=== PATIENT | male | born 1955 | race Two or more races ===

== ENCOUNTER 2019-10-07 08:04 | Day surgery (SDC) | payer BC ==
[2019-10-07] VITALS (8 sets, daily range): BP systolic 111–124; BP diastolic 72–84
[~2019-10-07] VITALS: Ht 172.7 cm; Wt 78.0 kg
[~2019-10-07 08:04] MED LIST: LR 1000ml 1,000 ML IVLG SCH
[2019-10-07] MEDS ORDERED: CRESTOR20 MG ORAL (08:54)
[2019-10-07] MEDS ORDERED: DIOVAN320 MG ORAL (08:54)
[2019-10-07] MEDS ORDERED: ASPIRIN81 MG ORAL (08:54)
--- NOTE | 2019-10-07 09:47 | Pre-Procedure Note/Attestation ---
Pre-Procedure Note/Attestation Complete Prior to Procedure Planned Procedure: not applicable Procedure Narrative: colonoscopy Indications for Procedure Pre-Operative Diagnosis: screening Attestation I attest that I discussed the nature of the procedure; its benefits; risks and complications; and alternatives (and the risks and benefits of such alternatives ), prior to the procedure, with the patient (or the patient's legal bilingual call center representative). I attest that, if there was a reasonable possibility of needing a blood transfusion, the patient (or the patient's legal bilingual call center representative) was given the [facility] standardized written summary, pursuant to the [place] Blood Safety Act ([place] Health and Safety Code # 1645, as amended). I attest that I re-evaluated the patient just prior to the surgery and that there has been no change in the patient's H&P, except as documented below: Marvin Barreto MD Oct 07, 2019 09:47
--- NOTE | 2019-10-07 09:48 | Short Stay Surgery H&P ---
History of Present Illness History of Present Illness Chief Complaint screening HPI Lavon Fletcher is a 64 year old male who was admitted on for Screening Colonoscopy Patient History Allergies: Coded Allergies: No Known Allergies (Unverified , 10/02/19) PAST MEDICAL HISTORY: (1) Sleep apnea (2) HTN (hypertension) (3) High cholesterol Medication History Scheduled Aspirin* (Aspirin*), 81 MG ORAL DAILY, (Reported) Rosuvastatin Calcium* (Crestor*), 20 MG ORAL DAILY, (Reported) Valsartan (Diovan), 320 MG ORAL DAILY, (Reported) Review of Systems Cardiovascular: Reports: no symptoms Respiratory: Reports: no symptoms Skeletal: Reports: no symptoms Gastrointestinal: Reports: no symptoms Genitourinary: Reports: no symptoms Neurologic: Reports: no symptoms Endocrine: Reports: no symptoms Hematologic: Reports: no symptoms Physical Exam Vital Signs Last Vital Signs Date Time Temp Pulse Resp B/P (MAP) Pulse Ox O2 Delivery O2 Flow Rate FiO2 10/07/19 08:50 Room Air 10/07/19 08:42 98.2 72 18 124/73 100 Skin: normal HENT: normal Heart: normal Lungs: normal Abdomen: normal Extremities: normal Plan Plan of Care colonoscopy Attestation Are the patient's medical conditions optimized for surgery? Attestation Response: yes Marvin Barreto MD Oct 07, 2019 09:48
[2019-10-07] MEDS ORDERED: Lidocaine 1% MPF 10mg/ml 5ml ONE (10:00)
[2019-10-07] MEDS ORDERED: Propofol 200mg/20ml IV ONE (10:00)
[2019-10-07] MEDS ORDERED: LR 1000ml ONE (10:00)
[2019-10-07] MEDS ORDERED: LR 1000ml 1,000 ML IVLG SCH (10:23)
--- NOTE | 2019-10-07 10:23 | Anethesia Preoperative Eval ---
Anesthesia Pre-op PMH/ROS General Date of Evaluation: Oct 07, 2019 Time of Evaluation: 10:01 Anesthesiologist: vaishnavi ASA Score: ASA 3 Mallampati Score Class I : Soft palate, uvula, fauces, pillars visible Class II: Soft palate, uvula, fauces visible Class III: Soft palate, base of uvula visible Class IV: Only hard plate visible Mallampati Classification: Class II Surgeon: desirae Diagnosis: colon screening Surgical Procedure: colonoscopy Anesthesia History: none Family History: no anesthesia problems Allergies: Coded Allergies: No Known Allergies (Unverified , 10/02/19) Medications: see eMAR Patient NPO?: Yes Past Medical History Cardiovascular: Reports: HTN, other - hypercholesterolemia Pulmonary: Reports: DARCY Anesthesia Pre-op Phys. Exam Physician Exam Last Vital Signs Date Time Temp Pulse Resp B/P (MAP) Pulse Ox O2 Delivery O2 Flow Rate FiO2 10/07/19 08:50 Room Air 10/07/19 08:42 98.2 72 18 124/73 100 Constitutional: NAD Neurologic: CN 2-12 intact Cardiovascular: RRR Respiratory: CTA Gastrointestinal: S/NT/ND Airway Exam Mallampati Score: Class II MO: full Neck: flexible TMD: 2fb ROM: full Anesthesia Pre-op A/P Studies Pre-op Studies: EKG - nsr Risk Assessment & Plan Assessment: asa3 Plan: mac Status Change Before Surgery: No Pre-Antibiotics Drug: Yuliana Vu MD Oct 07, 2019 10:23
--- NOTE | 2019-10-07 10:29 | Endoscopy Procedure Note ---
Endoscopy Procedure Note General Indication for Procedure: screening Procedures Performed: colonoscopy Operative Findings/Diagnosis: hemorrhoids Specimen: none Pt Tolerated Procedure Well: Yes Estimated Blood Loss: none Anesthesia Anesthesiologist: felix rodriguez Anesthesia: MAC Inserted Devices Implant(s) used?: No Quality Quality of Bowel Preparation: Good Did scope reach the cecum?: Yes Was there any complications?: No GI Core Measures 50 yrs or older w/o bx or poly: No 10yrs. F/U recommended: Yes If not recommended, why?: Above average risk 18 years or older w/prev. colo: Yes <3yrs. since last colonoscopy: No Marvin Barreto MD Oct 07, 2019 10:29
[2019-10-07] MEDS ORDERED: Atropine Inj 1mg/10ml Syr IV PRN (10:30)
[2019-10-07] MEDS ORDERED: DiphenhydrAMINE 50mg/ml Inj IVP PRN (10:30)
[2019-10-07] MEDS ORDERED: Midazolam 2mg/2ml Inj IVP PRN (10:30)
[2019-10-07] MEDS ORDERED: fentaNYL 100 mcg/2 mL IV PRN (10:30)
--- NOTE | 2019-10-07 11:59 | Immediate Post-Op Evaluation ---
Immediate Post-Op Evalulation Immediate Post-Op Evalulation Procedure: colonoscopy Date of Evaluation: Oct 07, 2019 Time of Evaluation: 10:50 IV Fluids: 200ml lr Blood Products: none Estimated Blood Loss: negligible Blood Pressure Systolic: 111 Blood Pressure Diastolic: 72 Pulse Rate: 69 Respiratory Rate: 18 O2 Sat by Pulse Oximetry: 100 Temperature (Fahrenheit): 97.6 Pain Score (1-10): 0 Nausea: No Vomiting: No Complications none Patient Status: awake, reacts, patent Hydration Status: adequate Drug: Yuliana Vu MD Oct 07, 2019 11:59
--- NOTE | 2019-10-07 12:02 | 48 Hour Post Anesthesia Eval ---
Post Anesthesia Evaluation Procedure: colonoscopy Date of Evaluation: Oct 07, 2019 Time of Evaluation: 10:52 Blood Pressure Systolic: 116 0: 76 Pulse Rate: 70 Respiratory Rate: 18 Temperature (Fahrenheit): 97.6 O2 Sat by Pulse Oximetry: 100 Airway: patent Nausea: No Vomiting: No Pain Intensity: 0 Hydration Status: adequate Cardiopulmonary Status: stable Mental Status/LOC: patient returned to baseline Post-Anesthesia Complications: none Follow-up care needed: N/A Yuliana George MD Oct 07, 2019 12:02
--- NOTE | 2019-10-07 16:00 | Procedure Note ---
DATE OF PROCEDURE: 10/07/2019 SURGEON: Marvin Barreto M.D. PROCEDURE: Colonoscopy. ANESTHESIA: Per Dr. Evans. INSTRUMENT: Olympus adult flexible colonoscope. REASON FOR PROCEDURE: The procedure, risks, benefits, and possible consequences, including hemorrhage, aspiration, perforation and infection, and alternative treatments, were explained to the patient/legal guardian by Dr. Marvin Barreto and the patient/legal guardian understood and accepted these risks. INDICATIONS: 1. Screening. 2. History of colonic polyps. DESCRIPTION OF PROCEDURE: After informed consent was obtained and the patient was adequately sedated, first rectal exam was performed, which was positive for internal hemorrhoids. Then, the scope was advanced from the rectum into the cecum, and then subsequently to terminal ileum. Quality of prep was very good. The patient had a normal colonoscopy examination. No obvious polyp, mass, diverticulosis, or any pathology was seen. Retroflexion of rectum showed evidence of internal hemorrhoids. The patient tolerated the procedure without any complication. SUMMARY OF FINDINGS: Internal hemorrhoids, otherwise normal colonoscopy examination up to the cecum and terminal ileum. RECOMMENDATIONS: Repeat colonoscopy in 5 years. I want to thank, for this kind referral. Marvin Barreto M.D. DR: FARHAD JOB#: [id number] CC:
--- NOTE | 2019-10-07 19:09 | Cardiology Report ---
APPROVED REPORT EKG Measurement Heart [id number] NC [id number] Normal sinus rhythm Normal ECG
== END 2019-10-07 11:35 | disposition home or self-care (01) ==
LOC: GAS 08:04
DX: Z12.11 Encounter for screening for malignant neoplasm of colon (principal); Z86.010 Personal history of colon polyps; K64.8 Other hemorrhoids; I10 Essential (primary) hypertension; E78.00 Pure hypercholesterolemia, unspecified; G47.30 Sleep apnea, unspecified; Z79.82 Long term (current) use of aspirin; Z79.899 Other long term (current) drug therapy; G47.33 Obstructive sleep apnea (adult) (pediatric)
CPT/HCPCS: 45378; 93005; J2704; J7120; 94003; 94150